=== PATIENT | male | born 2000 | race Caucasian/White ===

== ENCOUNTER 2020-09-04 19:19 | Emergency (ER) | payer OTHER ==
[~2020-09-04] VITALS: Ht 177.8 cm; Wt 80.0 kg
[2020-09-04 19:22] VITALS: BP 99/66
--- NOTE | 2020-09-04 20:10 | PHYS DOC ---
Past Medical History Past Medical History: No Pertinent History Past Surgical History: No Surgical History Smoking Status: Never Smoker Alcohol Use: Occasionally General Adult EDM: Chief Complaint: SORE THROAT HPI: HPI: Patient is a 20 year old male who presents to the ED today with sore throat that began yesterday. Patient denies any fever, coughing or congestion Review of Systems: Review of Systems: Constitutional: Denies fever or chills. [] Eyes: Denies change in visual acuity. [] HENT: Reports sore throat, denies any nasal congestion Respiratory: Denies cough or shortness of breath. [] Cardiovascular: Denies chest pain or edema. [] GI: Denies abdominal pain, nausea, vomiting, bloody stools or diarrhea. [] : Denies dysuria. [] Musculoskeletal: Denies back pain or joint pain. [] Integument: Denies rash. [] Neurologic: Denies headache, focal weakness or sensory changes. [] Psychiatric: Denies depression or anxiety. [] Heart Score: C/O Chest Pain: N/A Risk Factors: Risk Factors: DM, Current or recent (<one month) smoker, HTN, HLP, family history of CAD, obesity. Risk Scores: Score 0 - 3: 2.5% MACE over next 6 weeks - Discharge Home Score 4 - 6: 20.3% MACE over next 6 weeks - Admit for Clinical Observation Score 7 - 10: 72.7% MACE over next 6 weeks - Early Invasive Strategies Allergies: Allergies: Allergies Coded Allergies Type Severity Reaction Last Updated Verified No Known Drug Allergies 09/04/20 No Physical Exam: PE: Constitutional: Well developed, well nourished, no acute distress, non-toxic appearance. [] HENT: Normocephalic, atraumatic, bilateral external ears normal, oropharynx moist, no oral exudates, nose normal. [] Eyes: PERRLA, EOMI, conjunctiva normal, no discharge. [] Neck: Normal range of motion, no tenderness, supple, no stridor. [] Cardiovascular:Heart rate regular rhythm, no murmur [] Lungs & Thorax: Bilateral breath sounds clear to auscultation [] Abdomen: Bowel sounds normal, soft, no tenderness, no masses, no pulsatile masses. [] Skin: Warm, dry, no erythema, acne vulgaris noted Back: No tenderness, no CVA tenderness. [] Extremities: No tenderness, no cyanosis, no clubbing, ROM intact, no edema. [] Neurologic: Alert and oriented X 3, normal motor function, normal sensory function, no focal deficits noted. [] Psychologic: Affect normal, judgement normal, mood normal. [] Current Patient Data: Vital Signs: Vital Signs Date Time Temp Pulse Resp B/P (MAP) Pulse Ox O2 Delivery O2 Flow Rate FiO2 09/04/20 19:22 98.2 52 18 99/66 (77) 100 Room Air 98.2 EKG: EKG: [] Radiology/Procedures: Radiology/Procedures: [] Course & Med Decision Making: Course & Med Decision Making Pertinent Labs and Imaging studies reviewed. (See chart for details) This is a 30-year-old male patient presented to the ED today with sore throat since yesterday. Negative rapid strep. Discharged with instructions to take [id number] remedies, salt water gargles. Follow-up with ENT in 1 week if pain persist Gretel Disclaimer: Gretel Disclaimer: This electronic medical record was generated, in whole or in part, using a voice recognition dictation system. Departure Departure Impression: Primary Impression: Acute pharyngitis Qualified Codes: J02.9 - Acute pharyngitis, unspecified Disposition: HOME / SELF CARE / HOMELESS Condition: STABLE Referrals: NAKUL REBOLLEDO MD follow up in one week Patient Instructions: Viral Pharyngitis Additional Instructions: You were seen for sore throat, your rapid strep test is negative. Use salt water gargles. Take Tylenol/ Motrin for pain or fever. Follow-up with your primary care doctor or the provided ENT in 1 week if pain persists. Come back to the ED at any point symptoms worsen NISHANT DAUGHERTY APRN Sep 04, 2020 20:09
== END 2020-09-04 20:33 | disposition home or self-care (01) ==
LOC: ER 19:19
DX: J02.9 Acute pharyngitis, unspecified (principal)
CPT/HCPCS: 87070; 87880; 99283

== ENCOUNTER → 2021-04-19 | Outpatient (CLI) | payer OTHER ==
--- NOTE | 2021-04-19 16:18 | RAD ---
EXAM: Neck sonogram. HISTORY: Cervical lymphadenopathy. Tonsillitis. TECHNIQUE: Sonographic imaging of the neck was performed. COMPARISON: None. FINDINGS: There are multiple enlarged submandibular lymph nodes with abnormal thickened cortices and absent fatty donaldo, the largest of which measure 3.0 cm on the right and 2.7 cm on the left. IMPRESSION: Enlarged bilateral submandibular lymph nodes. Given a history of tonsillitis, these are l ikely reactive in etiology. Sonographic follow-up can be performed to confirm resolution. Electronically signed by: Negar Severino MD (04/19/2021 4:15 PM) [id number]
== END ==
LOC: US 15:16
PROVIDERS: ATTEND Physician Assistant
DX: R59.0 Localized enlarged lymph nodes (principal); J03.90 Acute tonsillitis, unspecified
CPT/HCPCS: 76536